=== PATIENT | female | born 2000 | race Caucasian/White ===

== ENCOUNTER 2020-08-13 09:36 | Inpatient (IN) | payer OTHER, SELFPAY ==
[~2020-08-13] VITALS: Ht 149.9 cm; Wt 63.5 kg
[2020-08-13 09:43] VITALS: BP 123/72
--- NOTE | 2020-08-13 09:47 | NUR ---
Pt ambulated to ER bed 12 with a steady gait.
--- NOTE | 2020-08-13 09:51 | NUR ---
Pt ambulated to restroom for UA collection.
--- NOTE | 2020-08-13 09:57 | NUR ---
20 Y/O FEMALE C/O SUBJECTIVE FEVER AT HOME 102F PER PT. ORAL TEMP ON ARRIVAL 99F, DENIES CHILLS. PT STATES SHE RECENTLY DELIVIERED 08/02/20 AND BEGAN TO HAVE FEVER X1DAY. PT DENIES N/V. PT STATES HEADACHE AND BACK PAIN 11/15 DESCRIBES CRAMPING. DENIES RX. PMH: RENAL AGENESIS NKA
--- NOTE | 2020-08-13 10:04 | NUR ---
Dr. Hernandez at pt bedside for further evaluation.
[2020-08-13] MEDS ORDERED: NACL 0.9% 1,000 ML IV ONE (10:20)
--- NOTE | 2020-08-13 10:23 | NUR ---
component lab tech at pt bedside. ELMA YOUNG collected gave to mechanical shop laborer Winter.
[2020-08-13 10:35] LABS: BASOPHILS % (AUTO) 0.3 % (0.0-2.0); EOSINOPHILS # (AUTO) 0.1 K/uL (0-0.4); EOSINOPHILS % (AUTO) 0.6 % (0.0-4.0); HEMATOCRIT 39.5 % (36-48); HEMOGLOBIN 13.3 g/dL (12.0-16.0); LYMPHOCYTES # (AUTO) 1.3 K/uL (2.5-16.5); LYMPHOCYTES % (AUTO) 9.8 % (20.5-51.1); MEAN CORPUSCULAR HEMOGLOBIN 30 pg (27-31); MEAN CORPUSCULAR HGB CONC 34 g/dL (33-37); MEAN CORPUSCULAR VOLUME 90.7 fL (80-94); MONOCYTES # (AUTO) 0.6 K/uL (0.8-1.0); MONOCYTES % (AUTO) 4.5 % (1.7-9.3); NEUTROPHILS # (AUTO) 11.1 K/uL (1.8-7.7); NEUTROPHILS % (AUTO) 84.8 % (42.2-75.2); PLATELET COUNT (AUTO) 467 K/uL (140-450); RED BLOOD CELL COUNT(AUTO) 4.36 MIL/uL (4.20-5.40); RED CELL DISTRIBUTION WIDTH 13.3 % (11.6-13.7); WHITE BLOOD COUNT (AUTO) 13.1 K/uL (4.8-10.8)
[2020-08-13 10:37] LABS: APPEARANCE,URINE CLOUDY (CLEAR); BILIRUBIN,URINE NEGATIVE (NEGATIVE); BLOOD, URINE 3+ (NEGATIVE); COLOR,URINE YELLOW (YELLOW); LEUKOCYTE ESTERASE ,URINE 3+ (NEGATIVE); NITRITE, URINE NEGATIVE (NEGATIVE); UGLUCOSE NEGATIVE (NEGATIVE)
--- NOTE | 2020-08-13 10:44 | NUR ---
Dr. Hernandez is reevaluating the patient at bedside.
--- NOTE | 2020-08-13 10:47 | NUR ---
Female Brick Grader accompanied female patient for Pelvic Exam.
[2020-08-13 10:49] LABS: ANION GAP 16.2 (8-16); CARBON DIOXIDE 19.7 mmol/L (21-32); CREATININE 1.2 mg/dL (0.6-1.3); POTASSIUM 3.9 mmol/L (3.5-5.1); TOTAL BILIRUBIN 0.4 mg/dL (0.0-1.0)
--- NOTE | 2020-08-13 10:51 | NUR ---
Shaka ellison in ED - 08/13/[address] at [address] Hernandez at [facility] for IV insertion via US.
--- NOTE | 2020-08-13 10:52 | NUR ---
collected GC and wet mount, walked to lab gave to laborer cheesemaking Winter.
[2020-08-13 10:54] LABS: RBC,URINE 50-80 /HPF (0-5)
[2020-08-13 10:55] LABS: WBC,URINE TOO MANY TO COUNT /HPF (0-5)
--- NOTE | 2020-08-13 10:58 | NUR ---
US tech at pt bedside.
--- NOTE | 2020-08-13 11:07 | NUR ---
Gave report to ISAIAS Marroquin transfer of care at this time.
--- NOTE | 2020-08-13 11:19 | NUR ---
made aware that pt has renal agenesis, CT consent obtained and in pt chart. Per Dr. Hernandez waiting for BNP result to see if CT with contrast can be performed on pt.
--- NOTE | 2020-08-13 11:34 | NUR ---
PT AMBULATED TO BATHROOM, STEADY GAIT.
[2020-08-13] MEDS ORDERED: CLINDAMYCIN 900 MG in DEXTROSE 5% 100 ML IV ONE (12:00)
[2020-08-13] MEDS ORDERED: GENTAMICIN PER PHARMACY MC PRN (12:00)
[2020-08-13] MEDS ORDERED: cefTRIAXone 1,000 MG VIAL ONE (12:04)
[2020-08-13] MEDS ORDERED: CLINDAMYCIN 900 MG/6 ML VIAL IV ONE (12:04)
--- NOTE | 2020-08-13 12:35 | NUR ---
PT BEING TAKEN TO CT [facility]IA [facility].
--- NOTE | 2020-08-13 13:36 | NUR ---
RECEIVED REPORT FROM ER NURSE VIVIEN, REGARDING PT, WILL TRANSPORT PT TO TELE UNIT IN 15MINS.
--- NOTE | 2020-08-13 13:36 | NUR ---
REPORT GIVEN TO ISAIAS MORTON FOR CONTINUITY OF CARE.
[2020-08-13 14:10] VITALS: BP 125/78
--- NOTE | 2020-08-13 14:10 | NUR ---
RECEIVED PT FROM ER NURSE, VIVIEN, PT IS AWAKE AND AMBULATED TO THE BED THEN TO THE BATHROOM, IV LINES NOTED ON RT HAND G. 22 AND LAC G. 20 BOTH ON SALINE LOCKS, PT IS ON ROOM AIR, SATURATING AT 100%, V/S TAKEN AND IS STABLE PT C/O PAIN RATE OF 7/10 BUT DOES NOT NEED PAIN MEDICATION NOW, WAS RELIEVED BY POSITION CHANGE, PT IS , HAD NORMAL DELIVERY ON AUGUST 02, 2020, NO SIGN OF DISTRESS NOTED, SAFETY PRECAUTION IN PLACE, SIDE RAILS AUP AND CALL LIGHT WITHIN REACH, AND WILL CONTINUE TO MONITOR PT.
--- NOTE | 2020-08-13 14:10 | NUR ---
Patient will be admitted to care of DR. FITZGERALD. Admited to [facility]. Will go to room 104B. Belongings list completed. Report to ISAIAS MARTÍNEZ.
--- NOTE | 2020-08-13 14:15 | NUR ---
MRSA SWAB DONE TO PT NOW AND SAMPLE WAS SENT TO LAB.
--- NOTE | 2020-08-13 15:13 | NUR ---
DR. FITZGERALD MADE A TELEPHONE ORDER TO PLACE PT ON A REGULAR DIET, ACKNOWLEDGED AND WILL BE CARRIED OUT.
[2020-08-13 16:45] VITALS: BP 108/68
[2020-08-13] MEDS ORDERED: ACETAMINOPHEN 650 MG/20.3 ML UDC PO PRN (16:50)
[2020-08-13] MEDS ORDERED: MORPHINE SULFATE 2 MG/ML SYR IVP PRN (16:50)
[2020-08-13] MEDS ORDERED: HYDROcodone/APAP 5/325 MG 1 TAB TAB PO PRN (16:50)
[2020-08-13] MEDS: AMPICILLIN/SULBACTAM 3 GM in NACL 0.9% 100 ML IV SCH (17:52)
--- NOTE | 2020-08-13 17:52 | NUR ---
PT WAS GIVEN SCHEDULED IVPB ANTIBIOTIC AND PRN MEDICATION FOR PAIN AND FEVR, TOLERATED AND WILL CONTINUE TO MONITOR PT.
[2020-08-13] MEDS ORDERED: AMPICILLIN/SULBACTAM 3 GM in NACL 0.9% 100 ML IV SCH (18:00)
--- NOTE | 2020-08-13 18:01 | NUR ---
DR. FITZGERALD CAME AND SPOKE TO PT AND TOLD PT THE PLAN OF CARE, PT VERBALIZED UNDERSTANDING.
--- NOTE | 2020-08-13 18:08 | NUR ---
DR. FITZGERALD MADE A TELEPHONE ORDER TO GIVE PT MISOPROSTOL 200MCG PO Q6H AND TO OB TAIN CONSENT FOR A SUCTION DILATATION AND CURETTAGE AND TO KEEP PT NPO AFTER MIDNIGHT, ORDERS READ BACK AND VERIFIED AND WILL BE CARRIED OUT.
--- NOTE | 2020-08-13 18:15 | NUR ---
DR. FITZGERALD MADE AN ORDER TO PLACE PT ON NPO AFTER 7AM TOMORROW, INFORMED FNS TO GIVE PT EARLY BREAKFAST, WILL ENDORSE TO QUALITY CONTROL DIRECTORCOOPERAGE SHOP SUPERVISOR.
--- NOTE | 2020-08-13 19:30 | NUR ---
RECEIVED BEDSIDE REPORT FROM DAY SHIFT NURSE, CHEL ESPARZA, FOR CONTINUITY OF CARE. PT IS AWAKE AND ALERT, A&OX4. ANSWERS QUESTIONS APPROPRIATELY. NO SIGN OF DISTRESS. BREATHING IS UNLABORED ON RA. PT IS SITTING UPRIGHT, EATING DINNER IN BED. PT IS ABLE TO AMBULATE INDEPENDENTLY. SKIN IS WARM, DRY, AND INTACT. IV IS IN THE LEFT AC 20 GAUGE AND RIGHT HAND 22 GAUGE. RAPID COVID NEGATIVE, STANDARD PRECAUTIONS IN PLACE. UNIVERSAL PRECAUTIONS IN PLACE. SCHEDULED FOR D&C TOMORROW AFTERNOON WITH DR. FITZGERALD. PLAN OF CARE DISCUSSED. PT IS STABLE AT THIS TIME.
--- NOTE | 2020-08-13 19:38 | NUR ---
ENDORSED PT TO PHYSICAL DIRECTOR NURSEIAN FOR CONTINUITY OF CARE.
[2020-08-13 20:00] VITALS: BP 100/61
--- NOTE | 2020-08-13 20:59 | NUR ---
PT STATES SHE IS FEELING NAUSEOUS CONTINUOUSLY. TEXTED DR. FITZGERALD AND INFORMED HIM OF THE PT'S NAUSEA. HE ORDERED ZOFRAN 4MG Q6H PRN FOR NAUSEA. WILL ADMINISTER ONCE VERIFIED BY THE PHARMACY.
[2020-08-13] MEDS ORDERED: ONDANSETRON 4 MG/2 ML VIAL IVP PRN (21:05)
--- NOTE | 2020-08-13 21:05 | NUR ---
CALLED L&D NURSE TO ASSIST PT WITH USING THE BREAST PUMP. NURSE IS NOW AT THE BEDSIDE PROVIDING EDUCATIONS FOR PT.
--- NOTE | 2020-08-13 21:07 | NUR ---
CALLED [facility] TO VERIFY ZOFRAN MEDICATION. PHARMACIST SAID IT NOW HAS BEEN VERIFIED. WILL ADMINISTER.
--- NOTE | 2020-08-13 21:15 | NUR ---
PT WAS GIVEN ZOFRAN FOR NAUSEA. WILL CONTINUE TO MONITOR IF NAUSEA SUBSIDES.
--- NOTE | 2020-08-13 23:00 | NUR ---
PT IS SITTING UPRIGHT IN BED ON HER CELL PHONE TALKING TO FAMILY. PT APPEARS TO BE CALM WITH NO DISTRESS. PT STATES SHE IS OKAY RIGHT NOW. DENIES PAIN AT THIS TIME. LIGHTS WERE DIMMED AND CALL LIGHT WAS PLACED WITHIN REACH. PT IS STABLE.
[2020-08-14] MEDS: AMPICILLIN/SULBACTAM 3 GM in NACL 0.9% 100 ML IV SCH ×4 (00:02→17:41)
--- NOTE | 2020-08-14 01:00 | NUR ---
MADE ROUNDS ON PT. SHE IS SLEEPING IN SEMI FOWLERS POSITION. CHEST RISE AND FALL IS SYMMETRICAL. PT DOES NOT APPEAR TO BE IN ANY PAIN. WILL CONTINUE TO MONITOR.
--- NOTE | 2020-08-14 03:00 | NUR ---
PT ASLEEP. NO RESPIRATORY DISTRESS NOTED. NO PAIN NOTED WELL. PT IS STABLE AT THIS TIME. BED IS IN THE LOWEST POSITION AND CALL LIGHT IS WITHIN REACH. STANDARD PRECAUTIONS IN PLACE
--- NOTE | 2020-08-14 05:00 | NUR ---
PT IS EASILY AWOKEN BY NOISE. A&OX4. PT DENIES PAIN. BREATHING IS UNLABORED. PT IS STABLE. WILL CONTINUE TO MONITOR.
[2020-08-14] MEDS: MISOPROSTOL 200 MCG TAB PO SCH ×4 (05:05→17:41)
--- NOTE | 2020-08-14 06:00 | NUR ---
PT WAS REMINDED THAT SHE WILL BE NPO AFTER 7 AM. ADVISED TO FINISH ANY DRINK OR FOOD SHE WANTED TO HAVE AND I WILL THROW THE REST AWAY SHORTLY. PT VERBALIZED UNDERSTANDING.
--- NOTE | 2020-08-14 07:15 | NUR ---
ENDORSED PT TO DAY SHIFT NURSE FOR CONTINUITY OF CARE. PT IS STABLE AT THIS TIME. PLAN OF CARE DISCUSSED.
--- NOTE | 2020-08-14 07:16 | NUR ---
RECEIVED REPORT FROM NEWS ANCHOR RN FOR CONTINUITY OF CARE. PATIENT AWAKE, AAOX4. AMBULATORY. ABLE TO PERFORM ADLS INDEPENDENTLY. IV TO LEFT AC 20G AND RIGHT HAND 22G SALINE LOCK, DRY, INTACT AND PATENT. NO ACUTE DISTRESS NOTED AT THIS TIME. SAFETY MEASURES IN PLACE. WILL CONTINUE TO MONITOR.
[2020-08-14 07:19] LABS: BASOPHILS % (AUTO) 0.3 % (0.0-2.0); EOSINOPHILS # (AUTO) 0.2 K/uL (0-0.4); EOSINOPHILS % (AUTO) 1.9 % (0.0-4.0); HEMOGLOBIN 12.8 g/dL (12.0-16.0); LYMPHOCYTES # (AUTO) 1.7 K/uL (2.5-16.5); MEAN CORPUSCULAR HEMOGLOBIN 31 pg (27-31); MEAN CORPUSCULAR HGB CONC 34 g/dL (33-37); MEAN CORPUSCULAR VOLUME 90.2 fL (80-94); MONOCYTES # (AUTO) 0.8 K/uL (0.8-1.0); MONOCYTES % (AUTO) 7.3 % (1.7-9.3); NEUTROPHILS # (AUTO) 7.9 K/uL (1.8-7.7); NEUTROPHILS % (AUTO) 74.5 % (42.2-75.2); PLATELET COUNT (AUTO) 411 K/uL (140-450); RED BLOOD CELL COUNT(AUTO) 4.21 MIL/uL (4.20-5.40); RED CELL DISTRIBUTION WIDTH 13.2 % (11.6-13.7); WHITE BLOOD COUNT (AUTO) 10.6 K/uL (4.8-10.8)
[2020-08-14 07:56] LABS: ANION GAP 14.8 (8-16); CARBON DIOXIDE 22.6 mmol/L (21-32); CREATININE 1.4 mg/dL (0.6-1.3); POTASSIUM 4.4 mmol/L (3.5-5.1)
[2020-08-14 08:00] VITALS: BP 95/67
[2020-08-14] MEDS: metroNIDAZOLE 500 MG/NS PREMIX 100 ML IV SCH ×2 (08:54→21:17)
--- NOTE | 2020-08-14 08:55 | NUR ---
SCHEDULED MEDICATION, EDUCATION PROVIDED. VERBALIZED UNDERSTANDING. NO ACUTE DISTRESS NOTED, WILL CONTINUE TO MONITOR.
[2020-08-14] MEDS: DEXT 5% /NACL 0.9% 1,000 ML IV SCH ×2 (09:40→18:40)
--- NOTE | 2020-08-14 11:13 | NUR ---
PATIENT RESTING IN BED IN SUPINE POSITION, DENIES PAIN. IVF D5 NS INFUSING ORDERED, WILL CONTINUE TO MONITOR.
--- NOTE | 2020-08-14 14:38 | NUR ---
PATIENT WAS PICKED UP BY THE OR NURSE TO HAVE PROCEDURE D&C. WILL FOLLOW UP.
--- NOTE | 2020-08-14 14:43 | NUR ---
PATIENT HAS BEEN SCREENED AND CATEGORIZED MODERATE NUTRITION RISK. PATIENT WILL BE SEEN WITHIN 3-5 DAYS OF ADMISSION. 08/16/20 - 08/18/20 GREG[address] DOMINGUEZ MBA, RD
[2020-08-14] MEDS ORDERED: ONDANSETRON 4 MG/2 ML VIAL ONE (15:26)
[2020-08-14] MEDS ORDERED: PROPOFOL 200 MG/20 ML VIAL IV ONE (15:26)
[2020-08-14] MEDS ORDERED: KETOROLAC 30 MG/ML VIAL ONE (15:26)
[2020-08-14] MEDS ORDERED: SEVOFLURANE 250 ML BTL INH ONE (15:26)
[2020-08-14] MEDS ORDERED: LIDOCAINE 2% 100 MG/5 ML SYR IVP ONE (15:26)
[2020-08-14] MEDS ORDERED: fentaNYL citrate 0.05 MG/ML VIAL ONE (15:26)
[2020-08-14] MEDS ORDERED: DEXAMETHASONE 4 MG/ML VIAL ONE (15:26)
[2020-08-14] MEDS ORDERED: LACTATED RINGERS 1,000 ML IV SCH (16:15)
[2020-08-14] MEDS ORDERED: MEPERIDINE 25 MG/ML SYR IVP PRN (16:15)
[2020-08-14] MEDS ORDERED: fentaNYL citrate 0.05 MG/ML VIAL IVP PRN (16:15)
[2020-08-14] MEDS ORDERED: ONDANSETRON 4 MG/2 ML VIAL IVP PRN (16:15)
[2020-08-14] MEDS ORDERED: diphenhydrAMINE 50 MG/ML VIAL IVP PRN (16:15)
[2020-08-14 16:55] VITALS: BP 108/74
--- NOTE | 2020-08-14 16:55 | NUR ---
PATIENT BACK FROM THE PROCEDURE. V/S TAKEN, DENIES PAIN AT THIS TIME. WILL CONTINUE TO MONITOR.
--- NOTE | 2020-08-14 19:35 | NUR ---
ENDORSED PATIENT TO JEWELRY SORTER RN FOR CONTINUITY OF CARE. PATIENT IN STABLE CONDITION.
--- NOTE | 2020-08-14 19:36 | NUR ---
RECEIVED PT FROM AM RN LYING IN BED, NO DISTRESS. RESPIRATION REGULAR NON LABORED. SKIN WARM AND DRY TO TOUCH. DENIES PAIN. WILL CONTINUE TO MONITOR.
--- NOTE | 2020-08-14 21:17 | NUR ---
SCHEDULED MEDICATIONS ADMINISTERED PER ORDER, NO ADVERSE REACTION NOTED. PT IS ALERT, AWAKE VERBALLY RESPONSIVE, ABLE TO COMMUNICATE WITH HER NEEDS. DENIES PAIN . WILL CONTINUE TO MONITOR.
[2020-08-15] VITALS: BP 107/72
--- NOTE | 2020-08-15 | NUR ---
MADE ROUNDS, PT SLEEPING. NO DISTRESS NOTED AT THIS TIME.
[2020-08-15] MEDS: MISOPROSTOL 200 MCG TAB PO SCH ×2 (01:25→06:11)
[2020-08-15] MEDS: AMPICILLIN/SULBACTAM 3 GM in NACL 0.9% 100 ML IV SCH ×4 (01:26→18:55)
[2020-08-15] MEDS: DEXT 5% /NACL 0.9% 1,000 ML IV SCH (04:47)
[2020-08-15] MEDS ORDERED: KETOROLAC 15 MG/ML VIAL IM PRN (07:15)
[2020-08-15] MEDS: NACL 0.9% 1,000 ML IV SCH ×2 (07:20→17:20)
--- NOTE | 2020-08-15 07:30 | NUR ---
ENDORSED PATIENT TO AM RN IN STABLE CONDITION.
--- NOTE | 2020-08-15 07:35 | NUR ---
PT RECEIVED FROM MAINTENANCE PAINTER RN. PT IS RESTING IN BED NO S/S OF DISTRESS. ALL SAFETY MEASURES IN PLACE. WILL CONTINUE TO MONITOR
[2020-08-15 08:00] VITALS: BP 127/69
[2020-08-15] MEDS: metroNIDAZOLE 500 MG/NS PREMIX 100 ML IV SCH ×2 (08:46→21:14)
--- NOTE | 2020-08-15 08:54 | NUR ---
MEDICATIONS GIVEN PER MD ORDER. PT EDUCATED. PT VERBALIZED UNDERSTANDING. NO S/S OF DISTRESS AT THIS TIME.CALL LIGHT IS WITHIN REACH. WILL CONTINUE TO MONITOR
--- NOTE | 2020-08-15 09:23 | NUR ---
DC [age]ANN[age] YRS OLD FEMALE PATIENT WAS ADMITTED FROM HOME WITH A DX OF ENDOMETRITIS. PT HAS A HX OF AND UNILATERAL RENAL AGENCIES. CXR SHOWED NO ACUTE FINDINGS ,RAPID COVID TEST NEGATIVE . STARTED IVF, IV ABX UNASYN . DR FITZGERALD PERFORMED D&C TOLERATED WELL ADVANCED DIET TO REGULAR. DC PLAN POSSIBLE DISCHARGE TODAY. CM TO FOLLOW .
--- NOTE | 2020-08-15 11:05 | NUR ---
PT AMBULATED TO RESTROOM TOLERATED WELL. WILL CONTINUE TO MONITOR.
--- NOTE | 2020-08-15 12:05 | NUR ---
OT IN BED SITTING.MEDICATIONS GIVEN PER MD ORDER. PT EDUCATED. PT VERBALIZED UNDERSTANDING. NO S/S OF DISTRESS AT THIS TIME.CALL LIGHT IS WITHIN REACH. WILL CONTINUE TO MONITOR
--- NOTE | 2020-08-15 13:47 | NUR ---
PT IN BED BRUSHING HAIR.. NO S/S OF DISTRESS AT THIS TIME.CALL LIGHT IS WITHIN REACH. ALL SAFETY MEASURES ARE IN PLACE. WILL CONTINUE TO MONITOR
--- NOTE | 2020-08-15 15:00 | NUR ---
PT IN BED RESTING TALKING ON PHONE.NO S/S OF DISTRESS AT THIS TIME.CALL LIGHT IS WITHIN REACH. WILL CONTINUE TO MONITOR
--- NOTE | 2020-08-15 17:00 | NUR ---
ROUND CHECK.PT IN BED.NO S/S OF DISTRESS AT THIS TIME.CALL LIGHT IS WITHIN REACH. WILL CONTINUE TO MONITOR
[2020-08-15 18:00] VITALS: BP 127/69
--- NOTE | 2020-08-15 18:00 | NUR ---
MEDICATIONS GIVEN PER MD ORDER. PT EDUCATED. PT VERBALIZED UNDERSTANDING. NO S/S OF DISTRESS AT THIS TIME.CALL LIGHT IS WITHIN REACH. WILL CONTINUE TO MONITOR
--- NOTE | 2020-08-15 19:30 | NUR ---
PT ENDORSED TO HEALTH AND SAFETY INSTRUCTOR RN FOR CONTINUITY OF CARE
--- NOTE | 2020-08-15 19:30 | NUR ---
RECEIVED PATIENT FROM MORNING RN , ALERT, AWAKE NO DISTRESS, NO SHORTNESS OF BREATH, RESPIRATION REGULAR NON LABORED. SKIN WARM AND DRY TO THE TOUCH. DENIES OF PAIN. NEEDS WELL ATTENDED. WILL CONTINUE TO MONITOR.
--- NOTE | 2020-08-15 21:14 | NUR ---
SCHEDULED MEDICATIONS ADMINISTERED PER ORDER, NO ADVERSE REACTION NOTED. NO SHORTNESS OF BREATH, NO ACUTE DISTRESS NOTED.
[2020-08-16] VITALS: BP 112/70
[2020-08-16] MEDS: AMPICILLIN/SULBACTAM 3 GM in NACL 0.9% 100 ML IV SCH ×3 (00:49→12:49)
--- NOTE | 2020-08-16 01:30 | NUR ---
MADE ROUNDS PATIENT SLEEPING , NO DISTRESS
[2020-08-16] MEDS: NACL 0.9% 1,000 ML IV SCH ×2 (04:05→13:20)
--- NOTE | 2020-08-16 04:30 | NUR ---
CHECKED PATIENT , AWAKE TALKING ON THE PHONE, CALL LIGHT WITHIN REACH.
--- NOTE | 2020-08-16 07:30 | NUR ---
REPORT RECEIVED FROM NIGHT NURSE. PATIENT IS IN STABLE CONDITION. CALL LIGHT WITHIN REACH, SAFETY MEASURES IN PLACE. WILL CONTINUE TO MONITOR.
[2020-08-16 08:00] VITALS: BP 120/73
[2020-08-16] MEDS: metroNIDAZOLE 500 MG/NS PREMIX 100 ML IV SCH (08:17)
--- NOTE | 2020-08-16 08:29 | NUR ---
SCHEDULED MORNING MEDICATION GIVEN. PATIENT IS IN STABLE CONDITION, WILL CONTINUE TO MONITOR.
--- NOTE | 2020-08-16 11:34 | NUR ---
ROUNDED ON PATIENT. PATIENT WAS STABLE, WILL CONTINUE TO MONITOR. CALL LIGHT WITHIN REACH.
--- NOTE | 2020-08-16 12:56 | NUR ---
SCHEDULED MEDICATION GIVEN. PATIENT IN STABLE CONDITION. CALL LIGHT WITHIN REACH. WILL CONTINUE TO MONITOR.
--- NOTE | 2020-08-16 14:04 | NUR ---
ROUNDED ON PATIENT. PATIENT INQUIRING ABOUT ANY DISCHARGE ORDERS. PATIENT IS STABLE. CALL LIGHT WITHIN REACH. WILL CONTINUE TO MONITOR.
--- NOTE | 2020-08-16 16:14 | NUR ---
DISCHARGE INSTRUCTIONS PROVIDED TO PATIENT IN PREFERRED LANGUAGE OF FINNISH. INSTRUCTIONS ON FOLLOW-UP WITH OBGYN IN 1 WEEK, DIET REGIMEN AND MANAGEMENT OF S/P DNC CARE. ANSWERED ALL OF PATIENT'S QUESTIONS REGARDING DISCHARGE. IV SITE REMOVED WITH MINIMAL BLOOD AND LUMEN COMPLETELY INTACT. AWAITING FOR PATIENT'S FAMILY TO ARRIVE TO TAKE PATIENT HOME. WILL CONTINUE TO MONITOR.
--- NOTE | 2020-08-16 16:40 | NUR ---
PATIENT'S FAMILY MEMBER AT LOBBY TO TAKE PATIENT HOME. ESCORTED PATIENT DOWN TO LOBBY VIA STEADY AMBULATION. PATIENT DISCHARGED AT THIS TIME TO HOME IN STABLE CONDITION.
== END 2020-08-16 16:40 | disposition home or self-care (01) | DRG 544 ==
LOC: MED 09:36 → MTU 11:58
PROVIDERS: ADMIT Obstetrics & Gynecology; ATTEND Obstetrics & Gynecology
PROC: 10D17ZZ Extraction of Products of Conception, Retained, Via Natural or Artificial Opening (ICD-10-PCS; principal; 2020-08-14 15:00)
DX: O86.12 Endometritis following delivery (principal); O86.21 Infection of kidney following delivery; Z20.822 Contact with and (suspected) exposure to COVID-19
CPT/HCPCS: 36415; 76856; 80048; 80053; 81001; 81025; 83690; 85025; 87040; 87081; 87086; 87210; 87491; 88305; 96360; 99285; J0295; J0696; J1100; J1885; J2001; J2405; J2704; J3010; J3490; J7030; J7042; J7060; J7120; Q9967

== ENCOUNTER 2022-12-21 16:29 | Emergency (ER) | payer OTHER ==
[~2022-12-21] VITALS: Ht 149.9 cm; Wt 60.8 kg
[2022-12-21 17:16] VITALS: BP 113/67; PULSE 108; RESP 20; TEMP 98.5; O2SAT 100
[2022-12-21] MEDS ORDERED: IBUP-2213 PO (18:22)
[2022-12-21] MEDS ORDERED: LIDO15SO4 PO (18:22)
[2022-12-21 19:01] VITALS: BP 113/67; PULSE 108; RESP 20; TEMP 98.5; O2SAT 100
[2022-12-21 19:18] LABS: FLU A ANTIGEN negative (NEGATIVE); FLU B ANTIGEN NEGATIVE (NEGATIVE)
== END 2022-12-21 19:01 | disposition home or self-care (01) ==
LOC: MED 16:29
DX: U07.1 COVID-19 (principal); Z79.899 Other long term (current) drug therapy
CPT/HCPCS: 81025; 87086; 99283

== ENCOUNTER 2023-04-26 08:30 | Emergency (ER) | payer OTHER ==
[~2023-04-26] VITALS: Ht 149.9 cm; Wt 61.2 kg
[~2023-04-26 08:30] MED LIST: IBUP-2213 PO; LIDO15SO4 PO
[2023-04-26 08:39] VITALS: BP 108/69; PULSE 131; RESP 18; TEMP 98.1; O2SAT 97
[2023-04-26] MEDS ORDERED: NACL 0.9% 1,000 ML IV ONE (08:50)
[2023-04-26 09:31] LABS: FLU A ANTIGEN negative (NEGATIVE); FLU B ANTIGEN negative (NEGATIVE)
[2023-04-26] MEDS ORDERED: IBUP-2213 PO (10:09)
[2023-04-26] MEDS ORDERED: PSEU120T22 PO (10:09)
[2023-04-26] MEDS ORDERED: PRED20TA5 PO (10:09)
[2023-04-26 10:35] VITALS: BP 120/79; PULSE 108; RESP 15; TEMP 98.8; O2SAT 100
== END 2023-04-26 10:35 | disposition home or self-care (01) ==
LOC: MED 08:30
DX: J06.9 Acute upper respiratory infection, unspecified (principal); Z20.822 Contact with and (suspected) exposure to COVID-19; Z79.899 Other long term (current) drug therapy
CPT/HCPCS: 81002; 81025; 93005; 96360; 99284; J7030

== ENCOUNTER 2023-07-06 09:17 | Emergency (ER) | payer OTHER ==
[~2023-07-06] VITALS: Ht 149.9 cm; Wt 61.2 kg
[~2023-07-06 09:17] MED LIST changes: +PRED20TA5 PO; +PSEU120T22 PO
[2023-07-06 09:20] VITALS: BP 109/61; PULSE 109; RESP 18; TEMP 97.1; O2SAT 100
[2023-07-06] MEDS ORDERED: TRAM-748 PO (10:15)
[2023-07-06 11:59] LABS: FLU A ANTIGEN negative (NEGATIVE)
[2023-07-06 12:08] LABS: FLU B ANTIGEN POSITIVE (NEGATIVE)
== END 2023-07-06 10:24 | disposition home or self-care (01) ==
LOC: MED 09:17
DX: B34.9 Viral infection, unspecified (principal); Z20.822 Contact with and (suspected) exposure to COVID-19; L52 Erythema nodosum; Z79.899 Other long term (current) drug therapy
CPT/HCPCS: 99283

== ENCOUNTER 2023-07-13 06:20 | Emergency (ER) | payer OTHER ==
[~2023-07-13] VITALS: Ht 149.9 cm; Wt 61.2 kg
[~2023-07-13 06:20] MED LIST changes: +TRAM-748 PO
[2023-07-13 06:23] VITALS: BP 138/74; PULSE 98; RESP 16; TEMP 98; O2SAT 99
[2023-07-13] MEDS ORDERED: NAPR-54 PO (07:05)
== END 2023-07-13 07:25 | disposition home or self-care (01) ==
LOC: MED 06:20
DX: L52 Erythema nodosum (principal); M79.661 Pain in right lower leg; Z79.899 Other long term (current) drug therapy
CPT/HCPCS: 99282